=== PATIENT | male | born 1955 | race American Indian/Alaskan Native ===

== ENCOUNTER 2018-02-14 07:36 | Day surgery (SDC) | payer MEDICAID ==
[2018-02-13 14:30] VITALS: BMI 22.1
--- NOTE | 2018-02-14 08:24 | CP.SDSHP ---
Same Day Surgery H & P - History Proposed Procedure: colonoscopy - Previous Medical/Surgical History Cardiac: Hypertension - Allergies Allergies: Allergies No Known Allergies Allergy (Verified 04/28/14 08:45) - Date & Time Date: 02/14/18 Time: 08:24 Short Stay Discharge - Short Stay Discharge Admitting Diagnosis/Reason for Visit: CHANGE IN BOWEL HABITS / BLOOD IN STOOL Disposition: HOME/ ROUTINE
[2018-02-14] MEDS ORDERED: Lidocaine Hydrochloride 5 ML INJ ONE (09:14)
[2018-02-14] MEDS ORDERED: Lidocaine Hydrochloride 0 ML INJ ONE (09:14)
[2018-02-14] MEDS ORDERED: Propofol 10 mg/ml Inj (20 ML) ONE (09:14)
[2018-02-14 09:17] VITALS: O2SAT 100
[2018-02-14 09:51] VITALS: TEMP 97.7
[2018-02-14 10:46] VITALS: BP 122/73; PULSE 56; RESP 11
== END 2018-02-14 11:20 | disposition home or self-care (01) ==
LOC: C.ENDO 07:36
PROVIDERS: ATTEND Colon & Rectal Surgery
DX: R19.4 Change in bowel habit (principal); K92.1 Melena; K64.8 Other hemorrhoids
CPT/HCPCS: 45378; J2704

== ENCOUNTER 2018-09-15 09:01 | Outpatient (CLI) | payer MEDICAID | END 2018-09-15 09:02 | disposition home or self-care (01) | LOC: C.CARD 09:01 | DX: R07.89 Other chest pain (principal); R94.31 Abnormal electrocardiogram [ECG] [EKG]; K29.60 Other gastritis without bleeding; E78.2 Mixed hyperlipidemia; K21.0 Gastro-esophageal reflux disease with esophagitis; Z68.22 Body mass index [BMI] 22.0-22.9, adult; I35.0 Nonrheumatic aortic (valve) stenosis ==